=== PATIENT | male | born 1985 | race Hispanic/Latino ===

== ENCOUNTER 2022-07-07 07:58 | Emergency (ER) | payer OTHER ==
[~2022-07-07] VITALS: Ht 172.7 cm; Wt 64.4 kg
[2022-07-07 08:34] LABS: APPEARANCE,URINE CLEAR (CLEAR); BILIRUBIN,URINE NEGATIVE (NEGATIVE); COLOR,URINE YELLOW (YELLOW); GLUCOSE, URINE (UA) NEGATIVE (NEGATIVE); KETONES,URINE 40 mg/dL (NEGATIVE); LEUKOCYTE ESTERASE ,URINE TRACE Leu/uL (NEGATIVE); NITRATE,URINE NEGATIVE (NEGATIVE); OCCULT BLOOD,URINE TRACE-INTACT (NEGATIVE); PROTEIN,URINE NEGATIVE (NEGATIVE); UROBILINOGEN,URINE 0.2 mg/dL (0.2-1.0)
[2022-07-07 08:42] LABS: AMPHET/METH SCREEN,URINE NEGATIVE (NEGATIVE); BARBITURATE SCREEN, URINE NEGATIVE (NEGATIVE); BENZODIAZEPINES SCREEN,URINE NEGATIVE (NEGATIVE); CANNABINOID SCREEN,URINE POSITIVE (NEGATIVE); COCAINE SCREEN,URINE NEGATIVE (NEGATIVE); OPIATE SCREEN,URINE NEGATIVE (NEGATIVE); PHENCYCLIDINE SCREEN,URINE NEGATIVE (NEGATIVE)
[2022-07-07 08:50] LABS: BACTERIA,URINE Rare /HPF (None Seen); RBC,URINE 0-1 /HPF (0-1); SQUAMOUS EPITHELIAL CELL,UR Rare /HPF (0-2)
[2022-07-07 09:14] LABS: BASOPHILS % (AUTO) 0.5 % (0.0-5.0); EOSINOPHILS % (AUTO) 1.5 % (0.0-8.0); HEMATOCRIT 41.5 % (42-54); LYMPHOCYTES % (AUTO) 14.4 % (21.0-51.0); MEAN CORPUSCULAR HEMOGLOBIN 27.3 pg (27.0-33.0); MEAN CORPUSCULAR HGB CONC 34.9 g/dL (32.0-36.0); MEAN CORPUSCULAR VOLUME 78.2 fL (79-99); MONOCYTES % (AUTO) 9.3 % (3.0-13.0); NEUTROPHILS % (AUTO) 73.9 % (40.0-77.0); PLATELET COUNT (AUTO) 300 K/uL (130-400); RED BLOOD CELL COUNT(AUTO) 5.31 MIL/uL (4.50-6.20); RED CELL DISTRIBUTION WIDTH 12.6 % (11.0-15.5); WHITE BLOOD COUNT (AUTO) 13.6 K/uL (4.8-10.8)
[2022-07-07] MEDS ORDERED: LACTATED RINGERS 1000ML 1,000 ML IV ONE (09:30)
[2022-07-07 09:54] LABS: ALBUMIN 3.7 g/dL (3.5-5.0); POTASSIUM 3.6 mmol/L (3.5-5.1)
[2022-07-07] MEDS ORDERED: IOHEXOL-350 75 ML VIAL IV ONE (10:01)
[2022-07-07] MEDS ORDERED: IBUP-2070 PO (10:57)
[2022-07-07] MEDS ORDERED: METR-172 PO (10:57)
[2022-07-07] MEDS ORDERED: LEVO750T39 PO (10:57)
[2022-07-07] MEDS ORDERED: LEVOFLOXACIN 750 MG/D5W 150ML BAG IVPB ONE (11:00)
[2022-07-07] MEDS ORDERED: CEFD300C3 PO (11:26)
[2022-07-07] MEDS ORDERED: CEFTRIAXONE 1G VIAL IVP ONE (11:30)
[2022-07-07] MEDS ORDERED: DiphenhydrAMINE HCL 50 MG/ML VIAL IV ONE (11:30)
[2022-07-07 13:19] VITALS: BP 107/65
== END 2022-07-07 13:21 | disposition home or self-care (01) ==
LOC: EDH 07:58
DX: K57.92 Diverticulitis of intestine, part unspecified, without perforation or abscess without bleeding (principal); R10.32 Left lower quadrant pain; R50.9 Fever, unspecified; Z88.1 Allergy status to other antibiotic agents; Z20.822 Contact with and (suspected) exposure to COVID-19; Z79.899 Other long term (current) drug therapy
CPT/HCPCS: 99285; 74177; 96374; 96361; 87635; 96375; 84484; 80053; 80305; 83690; 85025; 87804 ×2; 36415; 93005; 81001; C9803; J7120; J1200; J1956; J0696; Q9967

== ENCOUNTER 2024-03-12 17:33 | Emergency (ER) | payer SELFPAY ==
[~2024-03-12] VITALS: Ht 172.7 cm; Wt 58.1 kg
[~2024-03-12 17:33] MED LIST: CEFD300C3 PO; IBUP-2070 PO; METR-172 PO
[2024-03-12 18:09] LABS: BASOPHILS # (AUTO) 0.08 K/uL (0.00-0.20); BASOPHILS % (AUTO) 1.4 % (0.0-5.0); EOSINOPHILS # (AUTO) 0.42 K/uL (0.00-0.70); EOSINOPHILS % (AUTO) 7.1 % (0.0-8.0); IMMATURE GRANULOCYTE ABSOLUTE 0.01 K/uL (0-1); LYMPHOCYTES % (AUTO) 33.8 % (21.0-51.0); MEAN CORPUSCULAR HEMOGLOBIN 28.5 pg (27.0-33.0); MEAN CORPUSCULAR HGB CONC 35.2 g/dL (32.0-36.0); MEAN CORPUSCULAR VOLUME 80.8 fL (79-99); MONOCYTES # (AUTO) 0.4 K/uL (0.1-1.0); MONOCYTES % (AUTO) 7.5 % (3.0-13.0); NEUTROPHILS # (AUTO) 2.9 K/uL (1.8-7.7); PLATELET COUNT (AUTO) 304 K/uL (130-400); RED CELL DISTRIBUTION WIDTH 12.8 % (11.0-15.5); WHITE BLOOD COUNT (AUTO) 5.9 K/uL (4.8-10.8)
--- NOTE | 2024-03-12 18:20 | HMCIMG ---
CHEST 1VW HISTORY: Chest pain COMPARISON: None FINDINGS: A frontal projection of the chest was obtained. No acute pulmonary infiltrates is seen. The heart is normal in size. Prominent interstitial markings are seen. No evidence of aortic calcification is seen. IMPRESSION: 1. No acute pulmonary infiltrate is seen.
[2024-03-12 18:25] LABS: CREATININE 1.1 mg/dL (0.5-1.3); POTASSIUM 3.9 mmol/L (3.5-5.1)
[2024-03-12] MEDS: ketOROlac 30MG VIAL (30MG/ML) IM ONE (19:20)
[2024-03-12 19:40] LABS: APPEARANCE,URINE CLEAR (CLEAR); BILIRUBIN,URINE NEGATIVE (NEGATIVE); COLOR,URINE LIGHT-YELLOW (YELLOW); GLUCOSE, URINE (UA) NEGATIVE (NEGATIVE); KETONES,URINE 10 mg/dL (NEGATIVE); LEUKOCYTE ESTERASE ,URINE NEGATIVE Leu/uL (NEGATIVE); MUCUS,URINE RARE LPF (None Seen); NITRATE,URINE NEGATIVE (NEGATIVE); OCCULT BLOOD,URINE NEGATIVE (NEGATIVE); PROTEIN,URINE NEGATIVE (NEGATIVE); RBC,URINE 0-1 /HPF (0-1); UROBILINOGEN,URINE 0.2 mg/dL (0.2-1.0)
[2024-03-12 19:46] LABS: AMPHET/METH SCREEN,URINE NEGATIVE (NEGATIVE); BARBITURATE SCREEN, URINE NEGATIVE (NEGATIVE); BENZODIAZEPINES SCREEN,URINE NEGATIVE (NEGATIVE); CANNABINOID SCREEN,URINE POSITIVE (NEGATIVE); COCAINE SCREEN,URINE NEGATIVE (NEGATIVE); OPIATE SCREEN,URINE NEGATIVE (NEGATIVE); PHENCYCLIDINE SCREEN,URINE NEGATIVE (NEGATIVE)
--- NOTE | 2024-03-12 19:53 | EKG ---
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
[2024-03-12] MEDS ORDERED: AMOX875T2 PO (20:09)
--- NOTE | 2024-03-12 20:10 | ERN ---
General Chief Complaint: Earache Stated Complaint: RINGING IN THE EAR AND EARACHE Time Seen by MD: 17:37 Time Seen by Midlevel: 17:37 Source: patient History of Present Illness Initial Comments 38-year-old male who presents to the ED due to bilateral ear ringing and pain. Patient reports he initiated feeling sick approximately three months ago with dizziness, ear ringing, ear pain, and initiated with chest pain yesterday. Denies any abdominal pain, vomiting, fever or further associated symptoms. Allergies: Coded Allergies: No Allergy Information Available (Verified Allergy, Unknown, 07/07/22) levofloxacin (Unverified Allergy, Unknown, 07/07/22) Home Meds Active Scripts Amoxicillin (Amoxicillin) 875 Mg Tablet, 1 TAB PO BID for 7 Days, #14 TAB 0 Refills Prov:DANO LOBATO 03/12/24 Cefdinir (Cefdinir) 300 Mg Capsule, 300 MG PO BID, #18 CAP Prov:GLENDY GUEVARA MD 07/07/22 Ibuprofen (Ibuprofen) 600 Mg Tablet, 600 MG PO Q6H PRN for PAIN, #16 TAB Prov:GLENDY GUEVARA MD 07/07/22 Metronidazole (Metronidazole) 500 Mg Tablet, 500 MG PO TID, #30 TAB Prov:GLENDY GUEVARA MD 07/07/22 Past Medical History Past Medical History: Diverticulitis Medical History Other: PT REPORTS SICKLE CELL ANEMIA Past Surgical History: None ROS Dictation Constitutional: Positive for dizziness Negative for fever,chills, and weight loss Eyes: Negative for injury, pain,redness, and discharge ENT: Positive for ear ringing and pain Negative for injury or swelling Cardiovascular: Positive for chest pain Negative for palpitations, and edema Respiratory: Negative for shortness of breath, cough, and wheezing, Abdomen/GI: Negative for abdominal pain, nausea, vomiting, diarrhea, and constipation Back: Negative for injury and pain : Negative for painful urination, bleeding or discharge MS/Extremity: Negative for injury and deformity Skin: Negative for rash, and discoloration Neuro: Negative for headache, weakness, numbness, tingling, and seizure Psych: Negative for suicide ideation, homicidal ideation, and hallucinations Physical Exam Physical Exam Dictation General: awake, alert, no acute distress Head/Face: Normocephalic, atraumatic Eyes: normal conjunctiva ENT: oral cavity clear, right mild erythema noted to the canal and fluid behind the tympanic membrane, normal left TM, oral mucosa moist Neck: Trachea midline, supple, no nuchal rigidity Cardiovascular: RRR, normal S1/S2 Chest: Pain reproducible on palpation Respiratory: CTAB, no respiratory distress, no rales or wheezes Skin: Warm, dry, normal turgor, no rash MS/Extremity: Pulses equal, no cyanosis, neurovascular intact, FROM Neuro: COAx4, GCS 15, no neurological deficits, normal gait, Psych: Normal behavior, mood, and affect normal Results Laboratory and Microbiology Lab and Micro Result Laboratory Tests Test 03/12/24 17:59 03/12/24 19:20 03/12/24 19:24 White Blood Count 5.9 K/uL (4.8-10.8) Red Blood Count 5.20 MIL/uL (4.50-6.20) Hemoglobin 14.8 g/dL (14.0-18.0) Hematocrit 42.0 % (42-54) Mean Corpuscular Volume 80.8 fL (79-99) Mean Corpuscular Hemoglobin 28.5 pg (27.0-33.0) Mean Corpuscular Hemoglobin Concent 35.2 g/dL (32.0-36.0) Red Cell Distribution Width 12.8 % (11.0-15.5) Platelet Count 304 K/uL (130-400) Mean Platelet Volume 9.1 fL (7.5-10.5) Immature Granulocyte % (Auto) 0.2 % (0-1) Neutrophils (%) (Auto) 50.0 % (40.0-77.0) Lymphocytes (%) (Auto) 33.8 % (21.0-51.0) Monocytes (%) (Auto) 7.5 % (3.0-13.0) Eosinophils (%) (Auto) 7.1 % (0.0-8.0) Basophils (%) (Auto) 1.4 % (0.0-5.0) Neutrophils # (Auto) 2.9 K/uL (1.8-7.7) Lymphocytes # (Auto) 2.0 K/uL (1.0-4.8) Monocytes # (Auto) 0.4 K/uL (0.1-1.0) Eosinophils # (Auto) 0.42 K/uL (0.00-0.70) Basophils # (Auto) 0.08 K/uL (0.00-0.20) Absolute Immature Granulocyte (auto 0.01 K/uL (0-1) Nucleated Red Blood Cells 0.0 % (0.0-0.19) Sodium Level 140 mmol/L (136-145) Potassium Level 3.9 mmol/L (3.5-5.1) Chloride Level 105 mmol/L (101-111) Carbon Dioxide Level 28 mmol/L (21-32) Blood Urea Nitrogen 14 mg/dL (7-18) Creatinine 1.1 mg/dL (0.5-1.3) Glomerular Filtration Rate Calc 89 mL/min (>90) Random Glucose 82 mg/dL (70-105) Total Calcium 8.8 mg/dL (8.5-10.1) Troponin I High Sensitivity 23 ng/L (4-75) 30 ng/L (4-75) Urine Color LIGHT-YELLOW (YELLOW) Urine Appearance CLEAR (CLEAR) Urine pH 5.0 (5.0-8.0) Urine Specific [place] 1.018 (1.001-1.031) Urine Protein NEGATIVE mg/dL (NEGATIVE) Urine Glucose (UA) NEGATIVE mg/dL (NEGATIVE) Urine Ketones 10 mg/dL (NEGATIVE) H Urine Occult Blood NEGATIVE (NEGATIVE) Urine Nitrate NEGATIVE (NEGATIVE) Urine Bilirubin NEGATIVE mg/dL (NEGATIVE) Urine Urobilinogen 0.2 mg/dL (0.2-1.0) Urine Leukocyte Esterase NEGATIVE Kyle/uL Urine RBC 0-1 /HPF (0-1) Urine WBC 2-5 /HPF (0-1) H Urine Bacteria None /HPF (None Seen) Urine Opiates Screen NEGATIVE (NEGATIVE) Urine Barbiturates Screen NEGATIVE (NEGATIVE) Urine Phencyclidine Screen NEGATIVE (NEGATIVE) Urine Amphetamines Screen NEGATIVE (NEGATIVE) Urine Benzodiazepines Screen NEGATIVE (NEGATIVE) Urine Cocaine Screen NEGATIVE (NEGATIVE) Urine Marijuana (THC) Screen POSITIVE (NEGATIVE) H Labs Reviewed?: Yes EKG/XRAY/US/CT/MRI EKG Comment Date: 03/12/24 Time: 19:24 Ventricular rate: Rate: 61 EKG interpretation: Sinus rhythm, no STEMI, normal EKG Reviewed by ED Attending X-RAY Comment REASON: Chest Pain ORDERING PHYSICIAN: DANO LOBATO PROCEDURE: CXR1VW - CHEST 1VW CHEST 1VW HISTORY: Chest pain COMPARISON: None FINDINGS: A frontal projection of the chest was obtained. No acute pulmonary infiltrates is seen. The heart is normal in size. Prominent interstitial markings are seen. No evidence of aortic calcification is seen. IMPRESSION: 1. No acute pulmonary infiltrate is seen. MDM MDM: Differential diagnosis: Otitis media, atypical chest pain, SD, costochondritis, drug induced, Rationale: 38-year-old male who presents to the ED due to bilateral ear ringing and pain. Patient reports he initiated feeling sick approximately three months ago with dizziness, ear ringing, ear pain, and initiated with chest pain yesterday. Denies any abdominal pain, vomiting, fever or further associated symptoms. Per physical examination chest pain is reproducible on palpation, mild erythema and fluid behind the right tympanic membrane noted, patient is in no acute distress, nonlabored breathing. Labs obtained are nonspecific. Troponin within normal limits. Normal EKG. Chest x-ray indicates no acute abnormalities noted. UA negative for urinary tract infection. Drug screen is positive for marijuana. Ketorolac offered to be administered in the ED but patient declined. Patient was educated on findings and diagnosis. Antibiotics prescribed for outpatient treatment of otitis media. Advised to follow up with PCP. Return to the ED if any worsening symptoms. Patient verbalized understanding. Patient st able for discharge. There are no social concerns with this patient. I independently interpreted the test that were performed, results were reviewed by me and considered findings on radiology if ordered. Medical management and examination interpretation discussions were had by me with other qualified healthcare professionals as indicated for the patient's care. ED Course Orders Procedure Category Date Status Time Cbc With Differential LAB 03/12/24 Complete 17:48 Basic Metabolic Panel LAB 03/12/24 Complete 17:48 Urinalysis LAB 03/12/24 Complete W/Microscopic 17:48 Drug Screen Urine LAB 03/12/24 Complete 17:48 Troponin I High LAB 03/12/24 Complete Sensitivity 17:48 12 Lead Ekg Tracing- EKG 03/12/24 Resulted Technical 17:48 Chest 1vw RAD 03/12/24 Resulted 17:48 Ketorolac PHA 03/12/24 Complete Tromethamine 30mg/Ml 19:00 Troponin I High LAB 03/12/24 Complete Sensitivity 19:09 Vital Signs Date Time Temp Pulse Resp B/P (MAP) Pulse Ox O2 Delivery O2 Flow Rate FiO2 03/12/24 20:15 97.9 70 20 116/70 98 Room Air* 0 21 03/12/24 17:36 97.9 74 20 118/70 99 Room Air DX & DISP Disposition: Discharge Departure Impression: Primary Impression: Right otitis media Additional Impression: Atypical chest pain Condition: Stable Scripts Amoxicillin (Amoxicillin) 875 Mg Tablet 1 TAB PO BID for 7 Days, #14 TAB 0 Refills Prov: DANO LOBATO 03/12/24 Additional Instructions: Discharge home. Rest. Follow up with primary care DrStephani in 24 hours. Return to the ER for any acute changes or worsening symptoms. If any medications were prescribed take as directed. Okay to continue home medications unless otherwise discussed during your visit in the emergency room today. Patient was also advised to follow-up with primary care physician in 1 to 2 days for continued monitoring. Referrals: SELF,REFERRAL (PCP) LINDA ORNELAS MD, [place] ATTESTATION BY PHYSICIAN I PERFORMED THE SUBSTANTIVE PORTION OF THE VISIT. I HAVE REVIEWED AND PERSONALLY MADE AND APPROVED THE MANAGEMENT PLAN THAT IS DOCUMENTED IN THE NOTE BY MYSELF FOR THE A PP. I ACKNOWLEDGED FOR RESPONSIBILITY FOR THE PATIENT'S MANAGEMENT PLAN. DANO LOBATO Mar 12, 2024 20:10 LIE PARKER DO Mar 17, 2024 02:27
[2024-03-12 20:15] VITALS: BP 116/70; PULSE 70; RESP 20; TEMP 97.8; O2SAT 98
== END 2024-03-12 20:20 | disposition home or self-care (01) ==
LOC: EDH 17:33
DX: H66.91 Otitis media, unspecified, right ear (principal); R07.89 Other chest pain; Z79.899 Other long term (current) drug therapy; Z88.1 Allergy status to other antibiotic agents
CPT/HCPCS: 36415; 71045; 80048; 80305; 81001; 84484; 85025; 93005; 99285; J1885